=== PATIENT | male | born 1980 | race Hispanic/Latino ===

== ENCOUNTER → 2018-07-05 | Outpatient (CLI) | payer OTHER | END | disposition home or self-care (01) | LOC: RAH 15:47 | PROVIDERS: ATTEND Physical Medicine & Rehabilitation | DX: M99.03 Segmental and somatic dysfunction of lumbar region (principal) | CPT/HCPCS: 72110 ==

== ENCOUNTER → 2018-09-13 | Outpatient (CLI) | payer OTHER | END | disposition home or self-care (01) | LOC: RAH 14:55 | PROVIDERS: ATTEND Physical Medicine & Rehabilitation | DX: M54.16 Radiculopathy, lumbar region (principal) | CPT/HCPCS: 72148 ==

== ENCOUNTER → 2018-10-04 | Outpatient (CLI) | payer OTHER | END | disposition home or self-care (01) | LOC: RAH 08:55 | PROVIDERS: ATTEND Physical Medicine & Rehabilitation | DX: R10.31 Right lower quadrant pain (principal) | CPT/HCPCS: 76700; 76856 ==